=== PATIENT | female | born 1950 | race Two or more races ===

== ENCOUNTER 2025-06-28 07:50 | Day surgery (SDC) | payer OTHER ==
[~2025-06-28] VITALS: Ht 152.4 cm; Wt 72.1 kg
[2025-06-28] VITALS (7 sets, daily range): BP systolic 105–130; BP diastolic 67–82; PULSE 80–98; RESP 11–18; O2SAT 93–97
[~2025-06-28 07:50] MED LIST: AMLO1TAB22 PO; ATOR20TA50 PO; CHOL20007 PO; EMPA1TAB PO; GABA-1308 PO; GLIP10TA9 PO; HYDR25TA4 PO; LOSA-535 PO; METF-370 PO
[2025-06-28] MEDS: IODIXANOL 320MG/ML 100ML BTL IV ONE (08:52)
[2025-06-28] MEDS: VERAPAMIL 2.5MG/ML INJ 2ML VIAL IV ONE (08:58)
[2025-06-28] MEDS: MIDAZOLAM HCL 2MG/2ML 2ml VIAL (1mg/ml) ONE (08:58)
[2025-06-28] MEDS: SODIUM CHL 0.9% 0 ML ONE (08:58)
[2025-06-28] MEDS: fentaNYL CITRATE 100 MCG/2 ML VL ONE (08:58)
[2025-06-28] MEDS: HEPARIN SODIUM (PORCINE) 5000 UNITS/ML 1ML VIAL ONE (08:58)
[2025-06-28] MEDS: LIDOCAINE 2%HCL (LOCAL ANESTH.) INJ 20ML MDV ONE (08:58)
[2025-06-28] MEDS: ANGIOMAX 250 MG VIAL IV ONE (08:59)
--- NOTE | 2025-06-28 10:23 | DVHOP2 ---
Operative Report - 2 Report Details Date: 06/28/25 Preop Diagnosis: Obstructive cardiomyopathy Postop Diagnosis: No significant obstruction. Normal coronaries. Normal LV function. Normal pulmonary pressures. Normal left ventricular end-diastolic pressures Surgeon: Drea Schuler MD Anesthesiologist: Conscious sedation Anesthesia: Mac Consent: The patient was informed of the risks and benefits of the procedure. These include but are not limited to complications of anesthesia, postoperative infection, incomplete relief of symptoms, recurrence of symptoms, damage to blood vessels, nerves and tendons, deep venous thrombosis, pulmonary embolism and possible need for repeat surgery in the future. Complications: No complications Findings: Normal right and left heart catheterization Indications for Surgery: Hypertrophic cardiomyopathy Name of Procedure Performed Right and left heart catheterization. Bilateral cine coronary angiography. Left ventriculography. Procedure Details Procedure Details: Prior local anesthesia with 2% lidocaine to the right wrist and right antecubital area. The patient was prepped and draped in usual fashion followed by placement of a six [place] sheath into the antecubital vein and radial artery. We placed a Norman-Miguel Angel catheter into the antecubital vein and performed right heart catheterization. Catheter was in the right atrium right ventricle pulmonary artery capillary wedge pressure positions where pressures were obtained and recorded. Cardiac output was determined by the thermodilution technique in triplicate. O2 saturations were not obtained. We then placed a six [place] slender sheath into the radial artery through which a Stewart catheter was used to obtain pressures in the aorta and LV simultaneously. After ventriculography we placed a multipurpose catheter to obtain angiographic evaluation of both right coronary ostia without complications Hemodynamics: Right atrial pressure was 10 with a right ventricular pressure of 28/10. Pulmonary artery pressure of 28 over 15. A capillary wedge pressure of eight was noted. LV pressure was 157 over 12. There was no significant gradient on pullback. Aortic blood pressure was 155/84. Cardiac output was 5.3 L/min with a cardiac index of 3.14 L/min. Coronary anatomy: The right coronary artery is a large dominant vessel it is normal in its proximal mid and distal segments PDA and posterolateral branches are normal. The left main is large and normal. Left anterior descending is a large vessel it is normal in its proximal mid and distal segments. The circumflex is large with two marginal branches free of significant disease. Ventriculography in the HORN projection shows an EF of 55% without wall motion abnormalities Impression: Normal left ventricular end-diastolic pressure at rest with normal ejection fraction. Normal pulmonary pressures. Normal coronaries. No outflow tract obstruction delineated. Normal cardiac output. No significant valvulopathy. Condition Good Disposition Home Date of Service: Jun 28, 2025 Billing Provider: DREA SCHULER Sr., MD Cardiology Common Codes: 02846-WBSPVEW INP/OBS CARE (High) Cardiology Procedure Codes: 57746-ORGQ HEART CATH W/INTRA INJ, 03643-N/R & L HEART CATH FOR LVG DREA SCHULER Sr., MD Jun 28, 2025 10:23
== END 2025-06-28 11:40 | disposition home or self-care (01) ==
LOC: CATH 07:50
PROVIDERS: ATTEND Internal Medicine
DX: I42.1 Obstructive hypertrophic cardiomyopathy (principal); I10 Essential (primary) hypertension; I20.0 Unstable angina; E78.5 Hyperlipidemia, unspecified; E11.9 Type 2 diabetes mellitus without complications; E66.9 Obesity, unspecified; Z68.34 Body mass index [BMI] 34.0-34.9, adult; Z79.899 Other long term (current) drug therapy; Z79.82 Long term (current) use of aspirin; Z79.84 Long term (current) use of oral hypoglycemic drugs; Z90.710 Acquired absence of both cervix and uterus; Z88.0 Allergy status to penicillin
CPT/HCPCS: 93460; C1769; C1887; C1894; J1644; J2250; J3010; J7030; Q9967; 99152; 99153